=== PATIENT | female | born 1955 | race Asian ===

== ENCOUNTER 2021-05-18 06:15 | Day surgery (SDC) | payer OTHER ==
[~2021-05-18] VITALS: Ht 157.5 cm; Wt 72.1 kg
[~2021-05-18 06:15] MED LIST: METO25TA36 PO; OME20GT PO; TRAM50TA2 PO
[2021-05-18] MEDS ORDERED: ceFAZolin 1GM/50ML 100 ML IV ONE (06:47)
[2021-05-18] MEDS ORDERED: EPINEPHrine HCL 1 MG/1 ML AMP ONE (06:54)
[2021-05-18] MEDS ORDERED: BUPIVACAINE HCL 50 ML ONE (06:55)
[2021-05-18] MEDS ORDERED: LIDOCAINE 1% HCL (LOCAL ANESTH.) INJ 20ML MDV ONE (06:56)
[2021-05-18] MEDS ORDERED: SUCCINYLCHOLINE CHLORIDE 20 MG/ML 10ML VIAL IV ONE (06:57)
[2021-05-18] MEDS ORDERED: HYDROmorphone HCL 2 MG/ML VL ONE ×2 (07:04→09:08)
[2021-05-18] MEDS ORDERED: PROPOFOL 10 MG/ML 20 ML IV ONE (07:05)
[2021-05-18] MEDS ORDERED: DexAMETHasone SOD PHOS 10MG/1ML VIAL INJ ONE (07:05)
[2021-05-18] MEDS ORDERED: ONDANSETRON HCL 4 MG/2 ML VIAL ONE (07:05)
[2021-05-18] MEDS ORDERED: fentaNYL CITRATE 100 MCG/2 ML VL ONE (07:05)
[2021-05-18] MEDS ORDERED: MEPERIDINE HCL (25 MG/ML) 1ML VIAL ONE (07:31)
[2021-05-18] MEDS ORDERED: METOCLOPRAMIDE HCL 5MG/ml INJ 2ml VIAL IV PRN (08:45)
[2021-05-18] MEDS ORDERED: KETOROLAC TROMETH 30 MG/ML 1ML VIAL IV ONE (08:45)
[2021-05-18] MEDS ORDERED: HYDROmorphone HCL 2 MG/ML VL IV PRN (08:45)
[2021-05-18] MEDS ORDERED: HYDROmorphone HCL 2 MG/ML VL IV ONE (09:15)
[2021-05-18 11:20] VITALS: BP 143/86
== END 2021-05-18 11:55 | disposition home or self-care (01) ==
LOC: SUR 06:15
PROVIDERS: ATTEND Orthopaedic Surgery Sports Medicine
DX: M94.261 Chondromalacia, right knee (principal); I10 Essential (primary) hypertension; I49.9 Cardiac arrhythmia, unspecified; G89.29 Other chronic pain; M23.203 Derangement of unspecified medial meniscus due to old tear or injury, right knee; Z79.899 Other long term (current) drug therapy; Z98.890 Other specified postprocedural states; Z20.822 Contact with and (suspected) exposure to COVID-19
CPT/HCPCS: 29879; 29882; J0171; J0330; J0690; J1100; J1170; J1885; J2001; J2175; J2405; J2704; J3010; J3490; U0003

== ENCOUNTER 2021-07-12 07:36 | Emergency (ER) | payer OTHER ==
[~2021-07-12] VITALS: Ht 157.5 cm; Wt 70.3 kg
[2021-07-12] MEDS ORDERED: cloNIDine HCL 0.1 MG TAB PO ONE (08:00)
[2021-07-12] MEDS ORDERED: MECLIZINE HCL 25 MG TAB PO ONE (08:15)
[2021-07-12] MEDS ORDERED: SODIUM CHLORIDE 0.9% 1,000 ML IV ONE ×2 (08:30)
[2021-07-12] MEDS ORDERED: LORazepam 2MG/ML-1ML VIAL IV ONE (08:30)
[2021-07-12 10:35] LABS: Basophils # (auto) 0 10 ^3/uL (0-0.2); Basophils % (auto) 0.4 % (0.0-2.0); Eosinophils # (auto) 0.1 10 ^3/uL (0-0.8); Eosinophils % (auto) 0.8 % (0.0-7.0); Hemoglobin 14.5 g/dL (12.2-16.2); Lymphocytes # (auto) 0.8 10 ^3/uL (0.4-5.4); Lymphocytes % (auto) 10.1 % (10.0-50.0); Mean Corpuscular Hemoglobin 26.9 pg (28.0-32.0); Mean Corpuscular Volume 81.7 fL (80.0-100.0); Monocytes # (auto) 0.2 10 ^3/uL (0-1.3); Monocytes % (auto) 2.6 % (0.0-12.0); Neutrophils # (auto) 6.4 10 ^3/uL (1.6-8.6); Neutrophils % (auto) 86.1 % (37.0-80.0); Nucleated Red Blood Cells % 0.1 %; Red Blood Cells 5.38 10^6/uL (4.0-5.20); Red Cell Distribution Width 13.9 % (11.8-14.3); White Blood Cell 7.4 10^3/uL (4.4-10.8)
[2021-07-12 10:44] LABS: Albumin 3.9 g/dL (3.4-5.0); Calcium 9.3 mg/dL (8.5-10.1); Potassium 4.3 mmol/L (3.5-5.1)
[2021-07-12 10:48] LABS: BUN/Creatinine Ratio 19.4; Bilirubin, Total 0.7 mg/dL (0.2-1.0); Total Protein 7.9 g/dL (6.4-8.2)
[2021-07-12 13:29] VITALS: BP 140/77
== END 2021-07-12 13:42 | disposition home or self-care (01) ==
LOC: ER 07:36
DX: I16.0 Hypertensive urgency (principal); R42 Dizziness and giddiness; Z79.899 Other long term (current) drug therapy
CPT/HCPCS: 36415; 70450; 71045; 80053; 84484; 85025; 96360; 99285; J8597; 93005

== ENCOUNTER 2021-07-16 02:27 | Emergency (ER) | payer OTHER ==
[~2021-07-16] VITALS: Ht 157.5 cm; Wt 70.3 kg
[2021-07-16] MEDS ORDERED: LABETALOL HCL 5 MG/ML 4ML SYRINGE IV ONE (03:00)
[2021-07-16 03:29] LABS: Basophils # (auto) 0 10 ^3/uL (0-0.2); Basophils % (auto) 0.4 % (0.0-2.0); Eosinophils # (auto) 0.2 10 ^3/uL (0-0.8); Eosinophils % (auto) 2.7 % (0.0-7.0); Hematocrit 44.2 % (36.0-46.0); Hemoglobin 14.6 g/dL (12.2-16.2); Lymphocytes # (auto) 1.8 10 ^3/uL (0.4-5.4); Lymphocytes % (auto) 24.1 % (10.0-50.0); Mean Corpuscular Hgb Conc. 32.9 g/dL (32.0-36.0); Mean Corpuscular Volume 81.9 fL (80.0-100.0); Monocytes # (auto) 0.5 10 ^3/uL (0-1.3); Monocytes % (auto) 6.3 % (0.0-12.0); Neutrophils # (auto) 4.9 10 ^3/uL (1.6-8.6); Neutrophils % (auto) 66.5 % (37.0-80.0); Nucleated Red Blood Cells % 0.1 %; Red Cell Distribution Width 13.9 % (11.8-14.3); White Blood Cell 7.4 10^3/uL (4.4-10.8)
[2021-07-16 03:39] LABS: Potassium 3.5 mmol/L (3.5-5.1)
[2021-07-16 03:52] LABS: INR 0.99 (0.9-1.15); Partial Thromboplastin Time 26.4 sec (23.6-33.0)
[2021-07-16] MEDS ORDERED: LABETALOL HCL 200 MG TAB PO ONE (04:15)
[2021-07-16] MEDS ORDERED: LABE100T4 PO (04:56)
[2021-07-16 05:25] VITALS: BP 121/81
== END 2021-07-16 05:55 | disposition home or self-care (01) ==
LOC: ER 02:30
DX: H61.23 Impacted cerumen, bilateral (principal); R42 Dizziness and giddiness; I10 Essential (primary) hypertension
CPT/HCPCS: 36415; 71045; 80048; 84484; 85025; 85610; 85730; 86850; 86900; 86901; 93005; 96374; 99285; J3490; J7030

== ENCOUNTER 2021-07-19 01:52 | Emergency (ER) | payer OTHER ==
[~2021-07-19] VITALS: Ht 157.5 cm; Wt 69.9 kg
[~2021-07-19 01:52] MED LIST changes: +LABE100T4 PO
[2021-07-19] MEDS ORDERED: LORazepam 0.5 MG TAB PO ONE (07:00)
[2021-07-19 09:39] VITALS: BP 148/92
== END 2021-07-19 09:40 | disposition home or self-care (01) ==
LOC: ER 01:54
DX: I16.0 Hypertensive urgency (principal); F41.9 Anxiety disorder, unspecified; I10 Essential (primary) hypertension; Z79.899 Other long term (current) drug therapy
CPT/HCPCS: 93005; 99285; J7030; J7040

== ENCOUNTER 2022-07-20 06:17 | Day surgery (SDC) | payer MEDICARE, OTHER ==
[2022-07-19 15:12] LABS: Basophils # (auto) 0.1 10 ^3/uL (0-0.2); Basophils % (auto) 0.8 % (0.0-2.0); Eosinophils # (auto) 0.3 10 ^3/uL (0-0.8); Eosinophils % (auto) 3.8 % (0.0-7.0); Hematocrit 43.1 % (36.0-46.0); Hemoglobin 14.3 g/dL (12.2-16.2); Lymphocytes # (auto) 1.8 10 ^3/uL (0.4-5.4); Lymphocytes % (auto) 25.3 % (10.0-50.0); Mean Corpuscular Hemoglobin 27.5 pg (28.0-32.0); Mean Corpuscular Hgb Conc. 33.1 g/dL (32.0-36.0); Monocytes # (auto) 0.5 10 ^3/uL (0-1.3); Monocytes % (auto) 6.6 % (0.0-12.0); Neutrophils # (auto) 4.5 10 ^3/uL (1.6-8.6); Neutrophils % (auto) 63.5 % (37.0-80.0); Red Blood Cells 5.19 10^6/uL (4.0-5.20); Red Cell Distribution Width 13.8 % (11.8-14.3)
[2022-07-19 15:19] LABS: Urine Bacteria NONE SEEN /hpf (None Seen); Urine Blood Negative /uL (Negative); Urine Specific Gravity 1.012 (1.001-1.035); Urine WBC 1 /hpf (0 - 5)
[2022-07-19 15:32] LABS: Albumin 4.4 g/dL (3.4-5.0); Calcium 9.9 mg/dL (8.5-10.1); Potassium 3.6 mmol/L (3.5-5.1)
[2022-07-19 15:34] LABS: BUN/Creatinine Ratio 20.5
[2022-07-19 15:37] LABS: Bilirubin, Total 0.8 mg/dL (0.2-1.0); Total Protein 8.3 g/dL (6.4-8.2)
[2022-07-19 15:41] LABS: INR 0.96 (0.9-1.15); Partial Thromboplastin Time 27.6 sec (24.6-33.4)
[~2022-07-20] VITALS: Ht 157.5 cm; Wt 70.8 kg
[~2022-07-20 06:17] MED LIST changes: +ASCO500T11 PO; +CYA100I IM; +LOSA-69 PO; -METO25TA36 PO; +MULT-732 OR; -TRAM50TA2 PO
[2022-07-20] MEDS ORDERED: POVIDONE IODINE 10 % TOPICAL OINT 30GM TOP ONE (06:50)
[2022-07-20] MEDS ORDERED: BUPIVACAINE 0.75% INJ 10ML MPV SDV IJ ONE ×2 (06:51)
[2022-07-20] MEDS ORDERED: ROPIVACAINE 0.5% (5MG/ML) 20ML AMPULE IJ ONE (06:59)
[2022-07-20] MEDS ORDERED: SUCCINYLCHOLINE CHLORIDE 20 MG/ML 10ML VIAL IV ONE (07:02)
[2022-07-20] MEDS ORDERED: ROCURONIUM 10MG/ML 10ML VIAL IV ONE (07:02)
[2022-07-20] MEDS ORDERED: BACITRACIN TOP OINT 1 UD PKG TOP ONE (07:14)
[2022-07-20] MEDS ORDERED: MORPHINE SULFATE 4 MG/ML SYR/VIAL IV PRN (07:15)
[2022-07-20] MEDS ORDERED: METOCLOPRAMIDE HCL 5MG/ml INJ 2ml VIAL IV PRN (07:15)
[2022-07-20] MEDS ORDERED: HYDROmorphone HCL 2 MG/ML VL/or syr IV PRN ×2 (07:15)
[2022-07-20] MEDS ORDERED: DexAMETHasone SOD PHOS 10MG/1ML VIAL INJ ONE (07:25)
[2022-07-20] MEDS ORDERED: fentaNYL CITRATE 100 MCG/2 ML VL ONE (07:25)
[2022-07-20] MEDS ORDERED: SODIUM CHLORIDE LOCK 10 ML ONE (07:25)
[2022-07-20] MEDS ORDERED: PROPOFOL 10 MG/ML 20 ML IV ONE (07:25)
[2022-07-20] MEDS ORDERED: ceFAZolin 1GM/50ML 100 ML IV ONE (07:27)
[2022-07-20] MEDS ORDERED: ceFAZolin 1GM VL ONE (09:37)
[2022-07-20 12:20] VITALS: BP 156/95
[2022-07-20] MEDS ORDERED: ONDANSETRON HCL 4 MG/2 ML VIAL ONE ×2 (12:41→13:19)
[2022-07-20] MEDS ORDERED: ONDANSETRON HCL 4 MG/2 ML VIAL IV ONE ×2 (12:45)
[2022-07-20] MEDS ORDERED: ONDANSETRON HCL 4 MG/2 ML VIAL IM ONE ×2 (13:15→13:22)
== END 2022-07-20 13:35 | disposition home or self-care (01) ==
LOC: SUR 06:17
PROVIDERS: ATTEND Podiatrist Foot & Ankle Surgery
DX: M76.62 Achilles tendinitis, left leg (principal); M77.32 Calcaneal spur, left foot; S86.012A Strain of left Achilles tendon, initial encounter; M79.672 Pain in left foot; M89.9 Disorder of bone, unspecified; I10 Essential (primary) hypertension; X58.XXXA Exposure to other specified factors, initial encounter; Y93.89 Activity, other specified; Y92.89 Other specified places as the place of occurrence of the external cause; Y99.8 Other external cause status
CPT/HCPCS: 27635; 27650; 36415; 80053; 81001; 85025; 85610; 85730; 87426; 88305; 88311; J0330; J0690; J1100; J2405; J2704; J2795; J3010; U0003; J3490